=== PATIENT | female | born 1985 | race Caucasian/White ===

== ENCOUNTER 2016-11-07 10:29 | Emergency (ER) | payer OTHER ==
--- NOTE | 2016-11-07 14:08 | ED ORDER SUMMARY ---
..... Patient: LAURIE ROTHMAN OrderSheet [facility] VisitID: [id number] [address] [place] [address] 31y, F Registration Date/Time: 11/07/2016 ORDER SHEET Weight: 72.5 kg (stated) Allergies: No Known Drug Allergy GENERAL ORDERS: UA-Culture if indicated Urgent (11:16 11/07/2016 Hillary Calero) (Ack 11:26 NHouse ER Tech1) (12:06 MWinterer R.N.) CMP Urgent (11:16 11/07/2016 Hillary Calero) (Ack 11:26 NHouse ER Tech1) (11:39 NHouse ER Tech1) CBC w Diff Urgent (11:16 11/07/2016 Hillary Calero) (Ack 11:26 NHouse ER Tech1) (11:39 NHouse ER Tech1) Lipase Urgent (11:16 11/07/2016 Hillary Calero) (Ack 11:26 NHouse ER Tech1) (11:39 NHouse ER Tech1) Urine Urgent (11:16 11/07/2016 Hillary Calero) (Ack 11:26 NHouse ER Tech1) (12:06 MWinterer R.N.) CT Abd/Pel w Cont (No) (grf > 60) Urgent (12:20 11/07/2016 Hillary Calero) (Ack 12:25 NHouse ER Tech1) (13:17 DDean R.N.) MEDICATION ORDERS: GI Cocktail WHITE PO 30 mL (NOW) (11:16 11/07/2016 Hillary Calero) (Ack 11:25 MWinterer R.NYevgeniy) (11:46 MWinterer R.N.) IV FLUIDS: IV Saline Lock (12:52 11/07/2016 ALEXAintersharon R.NYevgeniy verbal order read back to Hillary Calero) (12:58 KWilliams R.N.) ORDER SHEET NOTES: [Electronically signed by Radha Modi R.N. (16:20 11/07/2016)] [Electronically signed by Miguel Bradford Dr. (13:30 11/13/2016)] [Electronically locked/signed by Radha Modi R.N. (16:20 11/07/2016)]
--- NOTE | 2016-11-07 14:08 | ED ORDER SUMMARY ---
..... Patient: LAURIE ROTHMAN OrderSheet [facility] VisitID: [id number] [address] [place] [address] 31y, F Registration Date/Time: 11/07/2016 ORDER SHEET Weight: 72.5 kg (stated) Allergies: No Known Drug Allergy GENERAL ORDERS: UA-Culture if indicated Urgent (11:16 11/07/2016 Hillary Calero) (Ack 11:26 NHouse ER Tech1) (12:06 MWinterer R.N.) CMP Urgent (11:16 11/07/2016 Hillary Calero) (Ack 11:26 NHouse ER Tech1) (11:39 NHouse ER Tech1) CBC w Diff Urgent (11:16 11/07/2016 Hillary Calero) (Ack 11:26 NHouse ER Tech1) (11:39 NHouse ER Tech1) Lipase Urgent (11:16 11/07/2016 Hillary Calero) (Ack 11:26 NHouse ER Tech1) (11:39 NHouse ER Tech1) Urine Urgent (11:16 11/07/2016 Hillary Calero) (Ack 11:26 NHouse ER Tech1) (12:06 MWinterer R.N.) CT Abd/Pel w Cont (No) (grf > 60) Urgent (12:20 11/07/2016 Hillary Calero) (Ack 12:25 NHouse ER Tech1) (13:17 DDean R.N.) MEDICATION ORDERS: GI Cocktail WHITE PO 30 mL (NOW) (11:16 11/07/2016 Hillary Calero) (Ack 11:25 MWinterer R.NYevgeniy) (11:46 MWinterer R.N.) IV FLUIDS: IV Saline Lock (12:52 11/07/2016 ALEXAintersharon R.NYevgeniy verbal order read back to Hillary Calero) (12:58 KWilliams R.N.) ORDER SHEET NOTES: [Electronically signed by Radha Modi R.N. (16:20 11/07/2016)] [Electronically signed by Miguel Bradford Dr. (13:30 11/13/2016)] [Electronically locked/signed by Radha Modi R.N. (16:20 11/07/2016)]
--- NOTE | 2016-11-07 14:08 | ED NURSING NOTES ---
Clinical Report - Nurses [facility] [address] [place] [address] 11/07/2016 10:30 Patient: LAURIE ROTHMAN TRIAGE Acuity: LEVEL 3. Chief Complaint: ABDOMINAL PAIN. Alert. No acute distress. SEPSIS SCREEN: Sepsis Screen. Negative (no infection suspected/documented). --11:00 Radha Modi R.N. 10:54 11/07/16. BP: 121/68. HR: 90. RR: 18. O2 saturation: 100% on room air. Temp: 98.3 F (oral). Pain level now: 08/16. --11:00 Radha Modi R.N. Weight: 72.5 kg stated. Height/Length: 67 inches Per Patient. BMI: 25.1. --10:57 Radha Modi R.N. Medications Methadone HCl Oral. --10:57 Radha Modi R.N. Medication/allergy information source: the patient. --11:00 Radha Modi R.N. Allergies No Known Drug Allergy. --10:57 Radha Modi R.N. History Arrived by private vehicle. Historian: patient. Onset. (2 days ago). Describes the quality as "pain" and stabbing. Relates location as generalized across abdomen. Notes pain level as 10/10 on arrival and at maximum. Reports last BM was 2 days ago. No nausea, vomiting or diarrhea. Treatment CONTOUR SANDER: None. SOCIAL HX: Current every day light tobacco smoker (cigarette)- less than 1/2 a pack per day. History of drug use. Is a recovering addict. No alcohol use. FALL RISK ASSESSMENT: Fall risk assessment completed. No fall risk identified. NUTRITIONAL RISK ASSESSMENT: The nutritional risk assessment revealed no deficiencies. FUNCTIONAL ASSESSMENT: Functional assessment: no impairments noted. LEARNING NEEDS ASSESSMENT: The learning needs assessment revealed no barriers. SKIN INTEGRITY ASSESSMENT: Skin integrity risk assessment completed. No skin integrity risk identified. --11:00 Radha Modi R.N. PROBLEMS: Cellulitis. Diarrhea. Substance Abuse. Contusion. Abrasion(s). Dental Pain. Immunizations. Abscess. Tetanus Status. Sinusitis. Prior Nosebleeds. Otitis Media. Ear Infection. Abdominal Pain. Back Pain. LNMP - Last Normal Menstrual Period. --10:58 Radha Modi R.N. Assessment GENERAL / NEURO / PSYCH: Alert. Oriented X 4. Appears in no acute distress. Patient appears calm and cooperative. RESPIRATORY: Respirations not labored. CVS: Capillary refill less than 2 seconds. GI / : Abdomen soft. Abdominal tenderness. SKIN: Mucous membranes are pink. Skin is warm and dry. --11:00 Radha Modi R.N. Interventions ID band on patient. To treatment room. --11:00 Radha Modi R.N. NURSING PROGRESS NOTES 11:11/07/16. Patient gowned. Two patient identifiers checked. Call light placed in reach. Side rails up x 1. Bed placed in lowest position. Brakes of bed on. Patient ready for evaluation- chart flagged and ED physician notified. --11:01 Radha Modi R.N. 11:46 11/07/2016 GI Cocktail (Magnesium-Aluminum) PO 30 mL given. Allergies verified and confirmed 5 rights. --11:46 Radha Modi R.N. 11:46 11/07/16. ( Pt ambulated to BR.). --11:46 Radha Modi R.N. 12:20 11/07/16. Overall patient status- she states feels worse. GI / : The patient reports abdominal pain. ( ED MD informed.). --12:20 Radha Modi R.N. 12:53 11/07/2016 Site #1 started via IV in the left upper arm with an 18g angiocath, with aseptic technique and good blood return; one attempt. Saline lock flushed with 10 mL saline (left brachial, ultrasound guidance x15 min). --12:58 Caitie Marte R.N. 13:15. Patient returned from CT by wheelchair with tech. --13:17 Dee Eugene R.N. 13:15 11/07/16. BP: 103/59. HR: 73. RR: 16. O2 saturation: 100% on room air. Temp: deferred. Pain level now: 0/10. Additional comments: pt denies pain, "just waiting on CT results". friend at bedside. --13:21 JabierDee R.N. DISPOSITION / DISCHARGE Departure time: approx 1430 Nov 07 2016. The patient left the Emergency Department; patient was accompanied by a placement coordinator. The patient appears to be alert, oriented x4 and in no acute distress. Gown found on bed. Unable to locate patient. Notified the ED physician and charge nurse of patient departure. The patient left the Emergency Department ambulatory. ( Police were notified of patient eloping from ED with IV site in place.). The patient eloped. --16:19 Radha Modi R.N. Locked/Released at 11/07/2016 16:20 by Radha Modi R.N.
--- NOTE | 2016-11-07 14:08 | ED NURSING NOTES ---
Clinical Report - Nurses [facility] [place] [address] 11/07/2016 10:30 Patient: LAURIE ROTHMAN TRIAGE Acuity: LEVEL 3. Chief Complaint: ABDOMINAL PAIN. Alert. No acute distress. SEPSIS SCREEN: Sepsis Screen. Negative (no infection suspected/documented). --11:00 Radha Modi R.N. 10:54 11/07/16. BP: 121/68. HR: 90. RR: 18. O2 saturation: 100% on room air. Temp: 98.3 F (oral). Pain level now: 08/16. --11:00 Radha Modi R.N. Weight: 72.5 kg stated. Height/Length: 67 inches Per Patient. BMI: 25.1. --10:57 Radha Modi R.N. Medications Methadone HCl Oral. --10:57 Radha Modi R.N. Medication/allergy information source: the patient. --11:00 Radha Modi R.N. Allergies No Known Drug Allergy. --10:57 Radha Modi R.N. History Arrived by private vehicle. Historian: patient. Onset. (2 days ago). Describes the quality as "pain" and stabbing. Relates location as generalized across abdomen. Notes pain level as 10/10 on arrival and at maximum. Reports last BM was 2 days ago. No nausea, vomiting or diarrhea. Treatment MARRIAGE AND FAMILY SOCIAL WORKER: None. SOCIAL HX: Current every day light tobacco smoker (cigarette)- less than 1/2 a pack per day. History of drug use. Is a recovering addict. No alcohol use. FALL RISK ASSESSMENT: Fall risk assessment completed. No fall risk identified. NUTRITIONAL RISK ASSESSMENT: The nutritional risk assessment revealed no deficiencies. FUNCTIONAL ASSESSMENT: Functional assessment: no impairments noted. LEARNING NEEDS ASSESSMENT: The learning needs assessment revealed no barriers. SKIN INTEGRITY ASSESSMENT: Skin integrity risk assessment completed. No skin integrity risk identified. --11:00 Radha Modi R.N. PROBLEMS: Cellulitis. Diarrhea. Substance Abuse. Contusion. Abrasion(s). Dental Pain. Immunizations. Abscess. Tetanus Status. Sinusitis. Prior Nosebleeds. Otitis Media. Ear Infection. Abdominal Pain. Back Pain. LNMP - Last Normal Menstrual Period. --10:58 Radha Modi R.N. Assessment GENERAL / NEURO / PSYCH: Alert. Oriented X 4. Appears in no acute distress. Patient appears calm and cooperative. RESPIRATORY: Respirations not labored. CVS: Capillary refill less than 2 seconds. GI / : Abdomen soft. Abdominal tenderness. SKIN: Mucous membranes are pink. Skin is warm and dry. --11:00 Radha Modi R.N. Interventions ID band on patient. To treatment room. --11:00 Radha oMdi R.N. NURSING PROGRESS NOTES 11:11/07/16. Patient gowned. Two patient identifiers checked. Call light placed in reach. Side rails up x 1. Bed placed in lowest position. Brakes of bed on. Patient ready for evaluation- chart flagged and ED physician notified. --11:01 Radha Modi R.N. 11:46 11/07/2016 GI Cocktail (Magnesium-Aluminum) PO 30 mL given. Allergies verified and confirmed 5 rights. --11:46 Radha Modi R.N. 11:46 11/07/16. ( Pt ambulated to BR.). --11:46 Radha Modi R.N. 12:20 11/07/16. Overall patient status- she states feels worse. GI / : The patient reports abdominal pain. ( ED MD informed.). --12:20 Radha Modi R.N. 12:53 11/07/2016 Site #1 started via IV in the left upper arm with an 18g angiocath, with aseptic technique and good blood return; one attempt. Saline lock flushed with 10 mL saline (left brachial, ultrasound guidance x15 min). --12:58 Caitie Marte R.N. 13:15. Patient returned from CT by wheelchair with tech. --13:17 Dee Eugene R.N. 13:15 11/07/16. BP: 103/59. HR: 73. RR: 16. O2 saturation: 100% on room air. Temp: deferred. Pain level now: 0/10. Additional comments: pt denies pain, "just waiting on CT results". friend at bedside. --13:21 JabierDee R.N. DISPOSITION / DISCHARGE Departure time: approx 1430 Nov 07 2016. The patient left the Emergency Department; patient was accompanied by a concrete journeyman. The patient appears to be alert, oriented x4 and in no acute distress. Gown found on bed. Unable to locate patient. Notified the ED physician and charge nurse of patient departure. The patient left the Emergency Department ambulatory. ( Police were notified of patient eloping from ED with IV site in place.). The patient eloped. --16:19 Radha Modi R.N. Locked/Released at 11/07/2016 16:20 by Radha Modi R.N.
--- NOTE | 2016-11-07 14:08 | ED CLINICAL REPORT ---
Clinical Report - Physicians/Mid Levels [facility] [address] [place] [address] 11/07/2016 10:30 Patient: YOLANDA ROTHMAN Arrived- By private vehicle. Historian- patient. HISTORY OF PRESENT ILLNESS Chief Complaint: ABDOMINAL PAIN. At its maximum, severity described as moderate. Modifying factors. Not worsened by anything. Not relieved by anything. This started past 2 ays and is still present (staying the same). It was abrupt in onset and has been constant but is not gone now. It is described as sharp. No radiation. No nausea, loss of appetite, vomiting or diarrhea. No additional abdominal pain. No recent travel. Similar symptoms previously: None. Recent medical care: Not recently seen/assessed. REVIEW OF SYSTEMS The patient has had constipation (last BM 2 days ago). No fever, chest pain, difficulty breathing or skin rash. All systems otherwise negative, except as recorded above. PAST HISTORY See nurses notes. Medications: Methadone HCl Oral. Allergies: No Known Drug Allergy. SOCIAL HISTORY Smoker- current status unknown. History of drug use. Is a recovering addict. No alcohol use. Is a local resident. FAMILY HISTORY (no family hx of bowel problems). ADDITIONAL NOTES The nursing notes have been reviewed. PHYSICAL EXAM Vital Signs: 11/07/2016 10:54 BP: 121/68. HR: 90. RR: 18. O2 saturation: 100%. Temp: 98.3 F. Pain level now: 10/10. Blood pressure normal. Oxygen saturation normal. Appearance: Alert. Oriented X3. No acute distress. Eyes: Pupils equal, round and reactive to light. Eyes normal inspection. ENT: Ears normal. Nose normal. Pharynx normal. Neck: Normal inspection. Neck supple. CVS: Normal heart rate and rhythm. Heart sounds normal. Pulses normal. Respiratory: No respiratory distress. Breath sounds normal. Chest nontender. Abdomen: Soft and nontender. No organomegaly. No mass. Femoral pulses equal. (Hypoactive bowel sounds in all 4 quadrants). Skin: Skin warm and dry. Normal skin color. No rash. Normal skin turgor. Extremities: Extremities exhibit normal ROM. No lower extremity edema. LABS, X-RAYS, AND EKG Abdominal CT: No free fluid. No bony lesion. no acute surgical findings. possible constipation. Study type: abdomen and pelvis. Abdominal CT performed with IV contrast. The study was independently viewed by me and interpreted by the radiologist. The study was discussed with the radiologist (via pacs and phone). Laboratory Tests: CBC w Diff: (JOSUÉ: 11/07/2016 11:35) ( MsgRcvd 11/07/2016 11:42) Final results Test Result Flag Units (Reference) WHITE BLOOD COUNT 7.6 K/uL (4.5-11.5) RED BLOOD COUNT 4.52 M/uL (4.00-5.20) HEMOGLOBIN 13.4 gm/dL (12.0-16.0) HEMATOCRIT 40.2 % (36.0-46.0) MEAN CELL VOLUME 89 fL (80-100) MEAN CORPUSCULAR HGB 30 pg (26-34) MEAN CORPUSCULAR HGB CONC 33 g/dL (31-37) RED CELL DISTRIBUTION WIDTH 13.2 % (11.6-14.8) PLATELET COUNT 200 K/uL (150-400) NEUTROPHIL % 70.6 % (50-75) LYMPH % 21.0 L % (25-40) MONO % 6.6 % (3-14) EOSINOPHIL % 1.6 % (0-4) BASOPHIL % 0.2 % (0-2) CMP: (JOSUÉ: 11/07/2016 11:35) ( MsgRcvd 11/07/2016 11:59) Final results Test Result Flag Units (Reference) GLUCOSE 102 mg/dL (70-110) BUN 9 mg/dL (7-18) CREATININE 0.8 mg/dL (0.6-1.3) Estimated GFR >60 mL/min Estimated GFR- >60 mL/min Note: Persistent reduction over 3 months in eGFR<60 mL/min/1.73 m2 defines CKD. Patients with eGFR values>=60 mL/min/1.73 m2 may also have CKD if evidence ofpersistent proteinuria. Additional information may be foundat www.kidney.org. SODIUM 140 mmol/L (136-145) POTASSIUM 4.2 mmol/L (3.5-5.1) CHLORIDE 106 mmol/L (98-107) CARBON DIOXIDE 27 mmol/L (21-32) CALCIUM 8.5 mg/dL (8.5-10.1) TOTAL PROTEIN 6.5 g/dL (6.4-8.2) ALBUMIN 3.1 L g/dL (3.3-5.0) BILIRUBIN, TOTAL 0.6 mg/dL (0.0-1.0) ALKALINE PHOSPHATASE 93 U/L (46-116) AST (SGOT) 59 H U/L (15-37) ALT (SGPT) 89 H U/L (12-78) LIPASE 109 U/L (73-393) . PROGRESS AND PROCEDURES Course of Care: The patient is a 31 yo female with past medical history significant for abdominal pain whichshe states that she needed a upper endoscopy for further evaluation however states she did not have this done because her symptoms resolved spontaneously. Patient is nontoxic on examination and does not have any tenderness on examination of the abdomen. Laboratory studies were ordered for a dilation of the patient's abdominal pain as well as GI cocktail. Symptoms appear to be related to peptic ulcer disease versus gastritis. Patient reports no alcohol consumption recently. Laboratory evaluation is noted for mild elevation in Liver enzymes. Lipase and bilirubin are normal. After the patient had received the GI cocktail, patient wasn't noted by RN to be rolling around in bed in significant distress. Patient does have an 80 report which recommends no narcotics or benzodiazepines for chronic conditions. At this time because the patient only has a small elevation in her liver enzymes, we'll offer patient any nonnarcotic pain medication she would like. CT scan is ordered for evaluation of any acute intra-abdominal processes. We'll monitor. CT scan results show patient to have large stool burden. No other acute abdomen allergies noted on CT scan. Patient is resting in bed in no acute distress on repeated on examination patient has no tenderness. Patient reports her pain at a 0 out of 10 in severity. Had discussion in regards to patient's laboratory studies, including urinalysis and CT scan. Discussed the patient workup, diagnosis, home care, follow-up, and return precautions. All questions answered. The patient expressed understanding of these instructions and was agreeable to them. Tonight the patient has a surgical abdomen. Do not feel further emergency department workup is warranted. Do not feel The patient needs to be admitted to the hospital. Disposition: Discharged. Condition: good. CLINICAL IMPRESSION Acute left upper quadrant abdominal pain. 11/07/2016 13:15 BP: 103/59. HR: 73. RR: 16. O2 saturation: 100%. Pain level now: 0/10. Blood pressure normal. Oxygen saturation normal. Constipation (acute). mild transaminitis, acute. INSTRUCTIONS Warnings: GENERAL WARNINGS: Return or contact your physician immediately if your condition worsens or changes unexpectedly, if not improving as expected, or if other problems arise. SPECIFICALLY, return if you develop pain, fever, vomiting, the inability to keep fluids down, blood in vomitus, blood in diarrhea, fainting or lightheadedness. Your Current Medications: CONTINUE TAKING THE FOLLOWING MEDICATIONS: Methadone HCl Oral. Prescription Medications: Miralax: take 1 heaping tablespoon mixed in 8 ounces juice every day as needed for constipation. Dispense twenty-six (26) ounce bottle. No refills. Substitution is permissible. OTC Medications: Senokot 8.6 mg: Take 2 orally every day as needed for constipation. Dispense thirty (30). No refills. Magnesium Citrate (10-oz bottle) (available over the counter): take 1 bottle. Repeat after 4 hours if needed. (Disp 2 bottles) Colace 100 mg capsules (available over the counter): take 1 capsule orally and twice daily as needed for constipation. No refill. Substitution is permissible. (disp 60 caps) Follow-up: Return to the emergency department as needed. Follow up with your doctor in three days. Reason for referral: reheck today's concerns. Summary of care provided to patient via paper. Screening today revealed the patient's blood pressure to be in the normal range. The patient should follow up with a primary care provider for blood pressure management. Understanding of the discharge instructions verbalized by patient. (Electronically signed by Miguel Bradford Dr. 11/13/2016 13:30) Addenda for YOLANDA ROTHMAN VisitID: [id number] Date: 11/07/2016 11/09/2016 9:22 Called pt on primary number listed to notify of positive UA and need for antibx. Man answering [phone] number states number is incorrect. (Electronically signed by Caitie Marte R.N. - 11/09/2016 9:22) 11/09/2016 10:22 Attempted to contact emergency contact (mom) left voicemail requesting return call. (Electronically signed by Caitie Marte R.N. - 11/09/2016 10:22) 11/11/2016 18:34 1820 message left on mothers contact phone number ([phone]), for pt to call back, pt needs rx; for Septra DS 1 po bid #10 per Yoon [place] @1823 message left on contact phone # ([phone]), name on message was Ivelisse Yadav, ask to have Yolanda Rothman call the ED, needs Rx as above (Electronically signed by Anitra Arzola R.N. - 11/11/2016 18:34)
--- NOTE | 2016-11-07 14:13 | DIAGNOSTIC IMAGING REPORT ---
PROCEDURE: CT ABD/PELVIS WITH CONTRAST INDICATION: Central abdominal pain. TECHNIQUE: 95 ml of Isovue 300 were injected intravenously and axial images were obtained of the entire abdomen and pelvis with sagittal and coronal reformations. COMPARISON: Compared to CT abdomen and pelvis on 08/09/2015. FINDINGS: ABDOMEN: Moderate to large amount of stool throughout the colon. Small bowel pattern is normal, including appendix. Gallbladder, liver, spleen, pancreas, kidneys, and aorta are normal. Bowel pattern is normal, including appendix. PELVIS: T-shaped IUD in position within the endometrial canal. There are 1.7 cm bilateral ovarian cysts. No evidence of free fluid. IMPRESSION: 1. Large amount of stool throughout the colon. Consider obstipation. 2. There is an IUD in satisfactory position (endometrial canal). 3. Bilateral ovarian cyst (no evidence of free fluid). 4. Findings discussed with Dr. Miguel Bradford. All CT scans at this facility use dose modulation, iterative reconstruction, and/or weight-based dosing when appropriate to reduce radiation dose to as low as reasonably achievable.
--- NOTE | 2016-11-13 13:30 | ED MAR SUMMARY ---
..... Medication Administration Record [facility]ly [facility] [address] [place] [address] Patient: LAURIE ROTHMAN Visit ID: [id number] 31y, F Weight: 72.5 kg Height/Length: 67 in BMI: 25.1 ALLERGIES: No Known Drug Allergy Given 11:46 11/07/2016 Radha Modi R.N. Medication Administered: GI COCKTAIL [PO] (MAGNESIUM-ALUMINUM), Dose: 30 mL PO. Medication Ordered: GI Cocktail WHITE PO 30 mL (NOW).
--- NOTE | 2016-11-13 13:30 | ED DISCHARGE INSTRUCTIONS ---
Patient: LAURIE ROTHMAN General Instructions [facility] VisitID: [id number] [place] [address] 31y, F Registration Date/Time: 11/07/2016 Acute left upper quadrant abdominal pain. 11/07/2016 13:15 BP: 103/59. HR: 73. RR: 16. O2 saturation: 100%. Pain level now: 0/10. Blood pressure normal. Oxygen saturation normal. Constipation (acute). mild transaminitis, acute. INSTRUCTIONS Warnings: GENERAL WARNINGS: Return or contact your physician immediately if your condition worsens or changes unexpectedly, if not improving as expected, or if other problems arise. SPECIFICALLY, return if you develop pain, fever, vomiting, the inability to keep fluids down, blood in vomitus, blood in diarrhea, fainting or lightheadedness. Your Current Medications: CONTINUE TAKING THE FOLLOWING MEDICATIONS: Methadone HCl Oral. Prescription Medications: Miralax: take 1 heaping tablespoon mixed in 8 ounces juice every day as needed for constipation. Dispense twenty-six (26) ounce bottle. No refills. Substitution is permissible. OTC Medications: Senokot 8.6 mg: Take 2 orally every day as needed for constipation. Dispense thirty (30). No refills. Magnesium Citrate (10-oz bottle) (available over the counter): take 1 bottle. Repeat after 4 hours if needed. (Disp 2 bottles) Colace 100 mg capsules (available over the counter): take 1 capsule orally and twice daily as needed for constipation. No refill. Substitution is permissible. (disp 60 caps) Follow-up: Return to the emergency department as needed. Follow up with your doctor in three days. Reason for referral: reheck today's concerns. Summary of care provided to patient via paper. Screening today revealed the patient's blood pressure to be in the normal range. The patient should follow up with a primary care provider for blood pressure management. Understanding of the discharge instructions verbalized by patient. ADDITIONAL INFORMATION Abdominal Pain,Uncertain Cause [Male] Based on your visit today, the exact cause of your abdominalpain is not clear. Your exam and tests do not indicate a dangerous cause at this time. However, the signs of a serious problem may take more time to appear. Although your evaluation was reassuring today, sometimes early in the course of many conditions, exam and lab tests can appear normal. Therefore, it is important for you to watch for any new symptoms or worsening of your condition. Causes It may not be obvious what caused your symptoms. Pay attention to things that do seem to make your symptoms worse or better and discuss this with your doctor when you follow up. Diagnosis The evaluation of abdominal pain in the emergency department may onlyrequire an exam by the doctor or it may include blood, urine or imaging studies, depending on many factors. Sometimes exams and tests can identify a cause but in many cases, a clear cause is not found. Further testing at follow up visits may help to suggest a clear diagnosis. Home Care Rest as much as possible until your next exam. Try to avoid any medications (unless otherwise directed by your doctor), foods, activities, or other factors that you may have contributed to your symptoms. Try to eat foods that you know that you have tolerated well in the past. Certain diets may be recommended for some conditions that cause abdominal pain. However, since the cause of your symptoms may not be clear, discuss your diet more with your primary care provider or specialist for further recommendations. Eating several small meals per day as opposed to 2 or 3 larger meals may help. Monitor closely for anything that may make your symptoms worse or better. Pay close attention to symptoms below that may indicate worsening of your condition. Follow Up and Precautions See your doctoras instructed or sooneror if your symptoms are not improving.In some cases, you may need more testing. When to Seek Medical Attention Contact your doctor or see medical attention ifany of the following occur: Pain is becoming worse You are unable to take your medications due to excessive vomiting Swelling of the abdomen Fever of 100.4F (38C) or higher, or as directed by your health care provider Blood in vomit or bowel movements (dark red or black color) Jaundice (yellow color of eyes and skin) New onset of weakness, dizziness or fainting New onset of chest, arm, back, neck or jaw pain Constipation (Adult) Constipation is bowel movements that are less frequent than usual. Stools often become very hard and difficult to pass. This may lead to abdominal pain and bloating. It may also cause painful bowel movements. Constipation may be due to a diet thats low in fiber. Some medications, especially pain medications, can also cause it. Constipation may be treated with enemas, suppositories, laxatives or stool softeners. Your doctor will advise you which will work best for you. Follow the advice below to help avoid this problem in the future. Home Care Medication: Take any medicines as directed. Some laxatives are safe only for occasional use. Others can be taken on a regular basis. Talk to your doctor or pharmacist if you have questions. General Care: Prescription pain medications can cause constipation. If you are prescribed pain medications, ask the doctor whether you should also take a stool softener. A diet high in fiber with plenty of fluids helps to maintain regular, soft bowel movements. The following foods are good sources of dietary fiber: Cereals and breads: Whole grain cereal with bran, oatmeal, rolled oats, whole grain breads Fruits: All fruits (fresh and dried), raisins, prunes, apricots, berries, figs Vegetables: Any fresh vegetables, especially peas, broccoli, brussels sprouts, winter squash, green beans, cauliflower, jones beans, carrots Other: Popcorn, brown rice Drink plenty of water when you increase the amount of fiber you eat. Follow Up with your doctor or return to this facility if symptoms do not improve in the next few days. You may require further tests or a referral to a specialist. Get Prompt Medical Attention if any of the following occur: Fever over 100.4F (38C) Failure to resume normal bowel movements Increasing abdominal or back pain Nausea or vomiting Abdominal swelling Blood in the stool Weakness, dizziness or fainting Unexpected vaginal bleeding Docusate Sodium Oral tablet What is this medicine? DOCUSATE (doc CUE sayt) is stool softener. It helps prevent constipation and straining or discomfort associated with hard or dry stools. How should I use this medicine? Take this medicine by mouth with a glass of water. Follow the directions on the label. Take your doses at regular intervals. Do not take your medicine more often than directed. Talk to your research attorney regarding the use of this medicine in children. While this medicine may be prescribed for children as young as 2 years for selected conditions, precautions do apply. What side effects may I notice from receiving this medicine? Side effects that you should report to your doctor or health home visit field care manager as soon as possible: allergic reactions like skin rash, itching or hives, swelling of the face, lips, or tongue Side effects that usually do not require medical attention (report to your doctor or health home visit field care manager if they continue or are bothersome): diarrhea stomach cramps throat irritation What may interact with this medicine? mineral oil What if I miss a dose? If you miss a dose, take it as soon as you can. If it is almost time for your next dose, take only that dose. Do not take double or extra doses. Where should I keep my medicine? Keep out of the reach of children. Store at room temperature between 15 and 30 degrees C (59 and 86 degrees F). Throw away any unused medicine after the expiration date. What should I tell my health care provider before I take this medicine? They need to know if you have any of these conditions: nausea or vomiting severe constipation stomach pain sudden change in bowel habit lasting more than 2 weeks an unusual or allergic reaction to docusate, other medicines, foods, dyes, or preservatives or trying to get breast-feeding What should I watch for while using this medicine? Do not use for more than one week without advice from your doctor or health home visit field care manager. If your constipation returns, check with your doctor or health home visit field care manager. Drink plenty of water while taking this medicine. Drinking water helps decrease constipation. Stop using this medicine and contact your doctor or health home visit field care manager if you experience any rectal bleeding or do not have a bowel movement after use. These could be signs of a more serious condition. You have been given the following additional information: Abdominal Pain, Unknown Cause, (Male) Constipation (Adult) Docusate Sodium Oral tablet (Electronically signed by Miguel Bradford Dr. 11/13/2016 13:30)
--- NOTE | 2016-11-13 13:30 | ED MED RECONCILIATION SUMMARY ---
Patient: LAURIE ROTHMAN Medication Reconciliation Report [facility] VisitID: [id number] [address] [place] [address] 31y, F Registration Date/Time: 11/07/2016 Weight: 72.5 kg Height/Length: 67 in. BMI: 25.1 ALLERGIES: No Known Drug Allergy The patient's Home Medications are listed below: CONTINUE TAKING THE FOLLOWING MEDICATIONS: Methadone HCl Oral The source(s) of the original Home Medication information: patient The following Medications were given to the patient in the Emergency Department: GI Cocktail [PO] PO 30 mL, administered: 11/07/2016 11:46:00 AM The following Medications were prescribed to the patient: Senokot 8.6 mg: Take 2 orally every day as needed for constipation. Dispense thirty (30). No refills. -- Miguel Bradford Dr. Magnesium Citrate (10-oz bottle) (available over the counter): take 1 bottle. Repeat after 4 hours if needed.(Disp 2 bottles) -- Miguel Bradford Dr. Miralax: take 1 heaping tablespoon mixed in 8 ounces juice every day as needed for constipation. Dispense twenty-six (26) ounce bottle. No refills. Substitution is permissible. -- Miguel Bradford Dr. Colace 100 mg capsules (available over the counter): take 1 capsule orally and twice daily as needed for constipation. No refill. Substitution is permissible.(disp 60 caps) -- Miguel Bradford Dr.
--- NOTE | 2016-11-13 13:30 | ED DISCHARGE INSTRUCTIONS ---
Patient: LAURIE ROTHMAN General Instructions [facility] VisitID: [id number] [place] [address] 31y, F Registration Date/Time: 11/07/2016 Acute left upper quadrant abdominal pain. 11/07/2016 13:15 BP: 103/59. HR: 73. RR: 16. O2 saturation: 100%. Pain level now: 0/10. Blood pressure normal. Oxygen saturation normal. Constipation (acute). mild transaminitis, acute. INSTRUCTIONS Warnings: GENERAL WARNINGS: Return or contact your physician immediately if your condition worsens or changes unexpectedly, if not improving as expected, or if other problems arise. SPECIFICALLY, return if you develop pain, fever, vomiting, the inability to keep fluids down, blood in vomitus, blood in diarrhea, fainting or lightheadedness. Your Current Medications: CONTINUE TAKING THE FOLLOWING MEDICATIONS: Methadone HCl Oral. Prescription Medications: Miralax: take 1 heaping tablespoon mixed in 8 ounces juice every day as needed for constipation. Dispense twenty-six (26) ounce bottle. No refills. Substitution is permissible. OTC Medications: Senokot 8.6 mg: Take 2 orally every day as needed for constipation. Dispense thirty (30). No refills. Magnesium Citrate (10-oz bottle) (available over the counter): take 1 bottle. Repeat after 4 hours if needed. (Disp 2 bottles) Colace 100 mg capsules (available over the counter): take 1 capsule orally and twice daily as needed for constipation. No refill. Substitution is permissible. (disp 60 caps) Follow-up: Return to the emergency department as needed. Follow up with your doctor in three days. Reason for referral: reheck today's concerns. Summary of care provided to patient via paper. Screening today revealed the patient's blood pressure to be in the normal range. The patient should follow up with a primary care provider for blood pressure management. Understanding of the discharge instructions verbalized by patient. ADDITIONAL INFORMATION Abdominal Pain,Uncertain Cause [Male] Based on your visit today, the exact cause of your abdominalpain is not clear. Your exam and tests do not indicate a dangerous cause at this time. However, the signs of a serious problem may take more time to appear. Although your evaluation was reassuring today, sometimes early in the course of many conditions, exam and lab tests can appear normal. Therefore, it is important for you to watch for any new symptoms or worsening of your condition. Causes It may not be obvious what caused your symptoms. Pay attention to things that do seem to make your symptoms worse or better and discuss this with your doctor when you follow up. Diagnosis The evaluation of abdominal pain in the emergency department may onlyrequire an exam by the doctor or it may include blood, urine or imaging studies, depending on many factors. Sometimes exams and tests can identify a cause but in many cases, a clear cause is not found. Further testing at follow up visits may help to suggest a clear diagnosis. Home Care Rest as much as possible until your next exam. Try to avoid any medications (unless otherwise directed by your doctor), foods, activities, or other factors that you may have contributed to your symptoms. Try to eat foods that you know that you have tolerated well in the past. Certain diets may be recommended for some conditions that cause abdominal pain. However, since the cause of your symptoms may not be clear, discuss your diet more with your primary care provider or specialist for further recommendations. Eating several small meals per day as opposed to 2 or 3 larger meals may help. Monitor closely for anything that may make your symptoms worse or better. Pay close attention to symptoms below that may indicate worsening of your condition. Follow Up and Precautions See your doctoras instructed or sooneror if your symptoms are not improving.In some cases, you may need more testing. When to Seek Medical Attention Contact your doctor or see medical attention ifany of the following occur: Pain is becoming worse You are unable to take your medications due to excessive vomiting Swelling of the abdomen Fever of 100.4F (38C) or higher, or as directed by your health care provider Blood in vomit or bowel movements (dark red or black color) Jaundice (yellow color of eyes and skin) New onset of weakness, dizziness or fainting New onset of chest, arm, back, neck or jaw pain Constipation (Adult) Constipation is bowel movements that are less frequent than usual. Stools often become very hard and difficult to pass. This may lead to abdominal pain and bloating. It may also cause painful bowel movements. Constipation may be due to a diet thats low in fiber. Some medications, especially pain medications, can also cause it. Constipation may be treated with enemas, suppositories, laxatives or stool softeners. Your doctor will advise you which will work best for you. Follow the advice below to help avoid this problem in the future. Home Care Medication: Take any medicines as directed. Some laxatives are safe only for occasional use. Others can be taken on a regular basis. Talk to your doctor or pharmacist if you have questions. General Care: Prescription pain medications can cause constipation. If you are prescribed pain medications, ask the doctor whether you should also take a stool softener. A diet high in fiber with plenty of fluids helps to maintain regular, soft bowel movements. The following foods are good sources of dietary fiber: Cereals and breads: Whole grain cereal with bran, oatmeal, rolled oats, whole grain breads Fruits: All fruits (fresh and dried), raisins, prunes, apricots, berries, figs Vegetables: Any fresh vegetables, especially peas, broccoli, brussels sprouts, winter squash, green beans, cauliflower, jones beans, carrots Other: Popcorn, brown rice Drink plenty of water when you increase the amount of fiber you eat. Follow Up with your doctor or return to this facility if symptoms do not improve in the next few days. You may require further tests or a referral to a specialist. Get Prompt Medical Attention if any of the following occur: Fever over 100.4F (38C) Failure to resume normal bowel movements Increasing abdominal or back pain Nausea or vomiting Abdominal swelling Blood in the stool Weakness, dizziness or fainting Unexpected vaginal bleeding Docusate Sodium Oral tablet What is this medicine? DOCUSATE (doc CUE sayt) is stool softener. It helps prevent constipation and straining or discomfort associated with hard or dry stools. How should I use this medicine? Take this medicine by mouth with a glass of water. Follow the directions on the label. Take your doses at regular intervals. Do not take your medicine more often than directed. Talk to your model maker apprentice regarding the use of this medicine in children. While this medicine may be prescribed for children as young as 2 years for selected conditions, precautions do apply. What side effects may I notice from receiving this medicine? Side effects that you should report to your doctor or health career development engineer as soon as possible: allergic reactions like skin rash, itching or hives, swelling of the face, lips, or tongue Side effects that usually do not require medical attention (report to your doctor or health career development engineer if they continue or are bothersome): diarrhea stomach cramps throat irritation What may interact with this medicine? mineral oil What if I miss a dose? If you miss a dose, take it as soon as you can. If it is almost time for your next dose, take only that dose. Do not take double or extra doses. Where should I keep my medicine? Keep out of the reach of children. Store at room temperature between 15 and 30 degrees C (59 and 86 degrees F). Throw away any unused medicine after the expiration date. What should I tell my health care provider before I take this medicine? They need to know if you have any of these conditions: nausea or vomiting severe constipation stomach pain sudden change in bowel habit lasting more than 2 weeks an unusual or allergic reaction to docusate, other medicines, foods, dyes, or preservatives or trying to get breast-feeding What should I watch for while using this medicine? Do not use for more than one week without advice from your doctor or health career development engineer. If your constipation returns, check with your doctor or health career development engineer. Drink plenty of water while taking this medicine. Drinking water helps decrease constipation. Stop using this medicine and contact your doctor or health career development engineer if you experience any rectal bleeding or do not have a bowel movement after use. These could be signs of a more serious condition. You have been given the following additional information: Abdominal Pain, Unknown Cause, (Male) Constipation (Adult) Docusate Sodium Oral tablet (Electronically signed by Miguel Bradford Dr. 11/13/2016 13:30)
--- NOTE | 2016-11-13 13:30 | ED MAR SUMMARY ---
..... Medication Administration Record [facility] [address] [place] [address] Patient: LAURIE ROTHMAN Visit ID: [id number] 31y, F Weight: 72.5 kg Height/Length: 67 in BMI: 25.1 ALLERGIES: No Known Drug Allergy Given 11:46 11/07/2016 Radha Modi R.N. Medication Administered: GI COCKTAIL [PO] (MAGNESIUM-ALUMINUM), Dose: 30 mL PO. Medication Ordered: GI Cocktail WHITE PO 30 mL (NOW).
--- NOTE | 2016-11-13 13:30 | ED MED RECONCILIATION SUMMARY ---
Patient: LAURIE ROTHMAN Medication Reconciliation Report [facility] VisitID: [id number] [address] [place] [address] 31y, F Registration Date/Time: 11/07/2016 Weight: 72.5 kg Height/Length: 67 in. BMI: 25.1 ALLERGIES: No Known Drug Allergy The patient's Home Medications are listed below: CONTINUE TAKING THE FOLLOWING MEDICATIONS: Methadone HCl Oral The source(s) of the original Home Medication information: patient The following Medications were given to the patient in the Emergency Department: GI Cocktail [PO] PO 30 mL, administered: 11/07/2016 11:46:00 AM The following Medications were prescribed to the patient: Senokot 8.6 mg: Take 2 orally every day as needed for constipation. Dispense thirty (30). No refills. -- Miguel Bradford Dr. Magnesium Citrate (10-oz bottle) (available over the counter): take 1 bottle. Repeat after 4 hours if needed.(Disp 2 bottles) -- Miguel Bradford Dr. Miralax: take 1 heaping tablespoon mixed in 8 ounces juice every day as needed for constipation. Dispense twenty-six (26) ounce bottle. No refills. Substitution is permissible. -- Miguel Bradford Dr. Colace 100 mg capsules (available over the counter): take 1 capsule orally and twice daily as needed for constipation. No refill. Substitution is permissible.(disp 60 caps) -- Miguel Bradford Dr.
== END 2016-11-07 14:30 | disposition left against medical advice (07) ==
LOC: ED SRH 10:29
DX: R10.12 Left upper quadrant pain (principal); K59.00 Constipation, unspecified; R74.0 Nonspecific elevation of levels of transaminase and lactic acid dehydrogenase [LDH]; Z79.891 Long term (current) use of opiate analgesic
CPT/HCPCS: 90004; 90074; 90100; 90148; 90469; 92235; 93070; 95059